=== PATIENT | female | born 1985 | race Caucasian/White ===

== ENCOUNTER → 2018-08-16 15:30 | Outpatient (CLI) | payer OTHER, SELFPAY ==
[2018-08-20 11:58] LABS: HPV Reflexed? NOT INDICATED
== END ==
PROVIDERS: Referring Provider Obstetrics & Gynecology; Visit Provider Obstetrics & Gynecology
DX: Z12.4 Encounter for screening for malignant neoplasm of cervix (principal)
CPT/HCPCS: 87624; 88175; G0145

== ENCOUNTER → 2019-02-14 10:59 | Outpatient (CLI) | payer OTHER, SELFPAY ==
[2016-07-08 20:15] VITALS: BMI 33.0
[2019-02-15 14:32] LABS: Chlamydia Trachomatis by PCR Negative (Negative); Neisserai gonorrhoeae by PCR Negative (Negative); Probe Check PASS; Sample Adequacy Control PASS; Specimen Processing Control PASS
== END ==
PROVIDERS: Referring Provider Obstetrics & Gynecology; Visit Provider Obstetrics & Gynecology
DX: Z11.3 Encounter for screening for infections with a predominantly sexual mode of transmission (principal)
CPT/HCPCS: 87491; 87591

== ENCOUNTER 2020-12-16 07:46 | Day surgery (SDC) | payer OTHER, SELFPAY ==
[2020-12-10 10:22] VITALS: BMI 32.4
[2020-12-16] VITALS (7 sets, daily range): BP systolic 98–115; BP diastolic 47–69; PULSE 62–78; RESP 16; TEMP 36.6–37.3; O2SAT 93–100; BMI 31.7
--- NOTE | 2020-12-16 05:51 | HP_ITS ---
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: No Is patient in pain?: No Allergies venom-honey bee [bee venom (honey bee)] Allergy (Verified 12/10/20 10:23) Swelling Medications Ibuprofen 600 mg PO 4X/DAY PRN #30 tab 07/08/16 [Rx Confirmed 12/10/20] B-complex with vitamin C 1 tab PO DAILY 12/10/20 [History Confirmed 12/10/20] hydrocortisone 1 ea .ROUTE BID PRN #30 g 12/10/20 [Rx Confirmed 12/10/20] hydrocortisone acetate 25 mg rectal suppository 25 mg RC BID PRN ea 12/10/20 [History Confirmed 12/10/20] lactobacillus combination no.8 3 billion cell capsule 3,000 mmu cells PO DAILY 12/10/20 [History Confirmed 12/10/20] thyroid 60 mg tablet mg PO 12/10/20 [History] Is last menstrual period known: No Post menopausal: No Patient : No PFSH Medical History (Updated 12/10/20 @ 10:[address] Anuja Schwartz MD) Blood per rectum (Acute) Dysfunction of eustachian tube (Acute) External hemorrhoid (Acute) Rectal pressure (Acute) Vertigo (Acute) History of palpitations in adulthood (Resolved) Surgical History (Updated 12/10/20 @ 10:22 by Manda Nicole) History of wisdom tooth extraction (Acute) Family History (Updated 12/10/20 @ 10:22 by Manda Nicole) Father Colon cancer Social History (Updated 12/10/20 @ 10:[address] Anuja Schwartz MD) Smoking Status: Never smoker HPI HPI HPI: FREDERICK BUENO, is a 35 F who presents to the office today for HPI HPI Surgical H&P: Yes HPI: FREDERICK BUENO, is a 35 F who presents to the office today for hemorrhoids/red blood per rectum. Patient states she has had issues with hemorrhoids for about 3 years. Patient did get Anusol suppositories per PCP states that may have helped but she will have 1 to 2 weeks of having issues 2 weeks having no issues. Patient's father was diagnosed with colon cancer at age 48 did have an APR. Patient states that she has bowel once usually daily some bright red blood but that pretty regularly. Currently states her hemorrhoids only a little irritated blood diarrhea depending on type of food she eats specially if she eats. Patient states that typically her stools are harder. ROS General General: Yes fatigue; no weight change, appetite, colon cancer, breast cancer or weakness HEENT HEENT: No difficulty swallowing, eye injury, eye surgery, swollen glands or hoarseness Endo Endocrine: No thyroid disease, diabetes mellitus, thyroid cancer, Hair loss, heat intolerance or cold intolerance Musc Musculoskeletal: No back problems, arthritis, rheumatoid arthritis, gout or joint pain Cardio Cardiovascular: No murmur, pacemaker, heart disease, atrial fibrillation, high blood pressure, heart attack, heart stent, palpitations, shortness of breat with exertion or chest pain Psych Psychiatric: No depression, anxiety or hearing voices Resp Respiratory: No shortness of breath, No sleep apnea, No cough, No COPD, No asthma, No emphysema, No wheezing Gastro Gastrointestinal: No abdominal pain, No nausea or vomiting, No diarrhea, No constipation, Yes blood in stool, No acid reflux, Yes hemorrhoids, No ulcers, No gallbladder problem, No black,tarry stools Wilfredo Hematologic: No blood thinners, No blood disorders, No bleeding, No anemia, No blood clots Neuro Neurologic: No weakness Exam Const General: cooperative, comfortable, no acute distress Resp Effort & Inspection: normal respiratory effort Cardio Rate: regular rate Heart Sounds: no murmurs GI Inspection: non-distended Palpation: soft, no guarding, nontender Other: Digital rectal exam: 11:00 small external hemorrhoid, 6:00 small amount of residual tissue noninflamed (6:00 being anterior). No masses tactile exam or blood, there is small internal hemorrhoid component at the 11:00 area. Assessment & Plan Problems 1. BRBPR (bright red blood per rectum) K62.5 2. Hemorrhoids K64.9 3. FH: colon cancer in relative <50 years old Z80.0 Dad was 48-year-old diagnosed- did have an APR Plan We will give the patient hydrocortisone/lidocaine ointment that can be placed on this external area. However her exam did not seem to be consistent with amount of blood she states that she would have that sometimes. This may be due to the hemorrhoids not being inflamed at this time possibly another source did recommend colonoscopy. Patient was agreeable with plan. I have discussed the above with the patient. I have offered the patient colonoscopy for evaluation. I have explained the risks/benefits of the procedure and described the procedure. I have discussed the risks with the patient, including but not limited to: infection, bleeding, perforation of the GI tract requiring emergency surgery, inability to complete the procedure, injury to any internal organs, complications of anesthesia, etc. - the patient understands and agrees to proceed. I have answered all the patient's questions to the patient's satisfaction and the patient has no further questions. The patient has been given instructions for the colon cleansing preparation. 1 day clears, MiraLAX Dulcolax split prep. We will plan for December 16 per patient request Anuja Schwartz M.D. Pager: [phone] [facility] [address] [place] [address], [address] [place] [address] Office: [phone] Orders Orders: Colonoscopy Today Medications New: hydrocortisone (Hydrocortisone 2.5%/lidocaine 5% ointment (compound)) 1 ea twice a day PRN; 30 grams 1RF pain Plan Detail Follow Up Schedule colonoscopy. Coding Level of Care Code Off vis,new,level 3 Diagnoses BRBPR (bright red blood per rectum) K62.5 Hemorrhoids K64.9 FH: colon cancer in relative <50 years old Z80.0 COVID (Procedure Consent) Procedure Criteria Procedure Criteria: Yes Elective The surgeon/proceduralist and patient have discussed in detail the risk of exposure to and/or potential harm posed by the COVID-19 virus with having a surgery/procedure at this time versus the risk of? delaying the surgery/procedure. It is not possible to know either the risk of delaying the surgery or procedure or chance of getting an infection with perfect accuracy, but a joint decision was made between the patient and the surgeon/proceduralist ?to proceed at this time with the scheduled surgery/procedure as indicated on the consent form. I have re-examined the patient. There are no clinical changes since date of exam.
[2020-12-16 08:23] LABS: Internal QC Validated? YES +Cl - CLEAR BKGD; Pregnancy, Urine Negative Negative
[2020-12-16] MEDS: Lactated Ringers 1,000 ML 100 ML IV (08:31)
--- NOTE | 2020-12-16 09:00 | COLBX_PTH ---
PATIENT: FREDERICK BUENO LOC: EN U#:[id number] AGE/SX: 35/F ROOM: RE12/16/[address]: Dr. Anuja Schwartz MD : 1985 BED: DIS: 12/16/2020 SPEC #: [id number] RECD: 12/16/20 10:19 STATUS: VERONIKA BAM #: [id number] GLEN: 12/16/20 09:[address]: Anuja Schwartz DEPT: SURGICAL PATHOLOGY RECD BY: Trang Billy ENTERED: 12/16/20 11:47 SP TYPE: COLON BX MAITE DR: Noemy Castro PA-C Tissues: A - Descending colon B - Descending colon Procedures: Surgery Specimen Level IV HEADER OPERATION: Colonoscopy (RAJ) PRE-OP DIAGNOSIS: Bright red blood per rectum, hemorrhoids TISSUE SUBMITTED: A - Descending colon polyp at 65 cm using snare, B - Descending colon polyp at 65 cm using forceps MICROSCOPIC DIAGNOSIS A. Descending colon polyp at 65 cm, biopsy: Fragments of tubular adenoma. B. Descending colon polyp at 65 cm, forceps biopsy: Tubular adenoma. AM:marcus 12/17/2020 MICROSCOPIC DESCRIPTION Slides are reviewed. GROSS DESCRIPTION A - Received in fixative is one container labeled with the patient's name and designated descending colon polyp. The specimen consists of multiple irregular fragments of [place] soft tissue that in aggregate measure 0.6 x 0.6 x 0.1 cm. The specimen is totally submitted in one cassette. B - Received in fixative is one container labeled with the patient's name and designated descending colon polyp. The specimen consists of one irregular fragment of light [place] soft tissue that measures 0.3 x 0.2 x 0.1 cm. The specimen is totally submitted in one cassette. / AM:marcus 12/16/20 TC:5 CPT: 47433 x2
--- NOTE | 2020-12-16 14:43 | OP.CCLET_ITS ---
12/16/2020 Noemy Castro Re : Colonoscopy procedure for Grecia Castro This procedure was performed on Wednesday, December 16, 2020. My impressions and recommendations are as follows: Impressions : - Hemorrhoids found on perianal exam. - Non-bleeding external and internal hemorrhoids. - One 5 mm polyp in the sigmoid colon at 65 cm, removed with a hot snare. Resected and retrieved. - One less than 5 mm polyp in the sigmoid colon at 65 cm, removed with a cold biopsy forceps. Resected and retrieved. - The examination was otherwise normal. Recommendations : - Discharge patient to home. - Resume previous diet. - Continue present medications. - Await pathology results. - Repeat colonoscopy in 3 years for surveillance based on pathology results. My findings are described in the full procedure note, which is enclosed. If I can be of further assistance, please feel free to contact me at Doctor phone number(s): , Work: . Sincerely, MD Anuja Barros MD 12/16/2020 9:39:19 AM This report has been signed electronically.
--- NOTE | 2020-12-16 14:43 | OP.COLON_ITS ---
Patient Name: Grecia Larose Procedure Date: 12/16/2020 8:54 AM Date of : 1985 Age: 35 Procedure: Colonoscopy Indications: Rectal bleeding, Family history of colon cancer in a first-degree relative Providers: Anuja Schwartz MD Referring MD: Noemy Castro Medicines: Monitored Anesthesia Care Patient Profile: This is a 35 year old female. Last Colonoscopy: none. The patient's first colonoscopy is today. Complications: No immediate complications. Procedure: Pre-Anesthesia Assessment: - Prior to the procedure, a History and Physical was performed, and patient medications and allergies were reviewed. The patient's tolerance of previous anesthesia was also reviewed. The risks and benefits of the procedure and the sedation options and risks were discussed with the patient. All questions were answered, and informed consent was obtained. Prior Anticoagulants: The patient has taken no previous anticoagulant or antiplatelet agents. ASA Grade Assessment: Per anesthesia. After reviewing the risks and benefits, the patient was deemed in satisfactory condition to undergo the procedure. After I obtained informed consent, the scope was passed under direct vision. Throughout the procedure, the patient's blood pressure, pulse, and oxygen saturations were monitored continuously. The pediatric colonoscope was introduced through the anus and advanced to the cecum, identified by appendiceal orifice and ileocecal valve. The colonoscopy was performed without difficulty. The patient tolerated the procedure well. The quality of the bowel preparation was good. Scope In: 9:04:48 AM Scope Withdrawal Time 0 hours 19 minutes 23 seconds Scope Out: 9:27:50 AM Total Procedure Duration Time 0 hours 23 minutes 2 seconds Findings: Hemorrhoids were found on perianal exam. Non-bleeding external and internal hemorrhoids were found. The hemorrhoids were Grade I (internal hemorrhoids that do not prolapse). A 5 mm polyp was found in the sigmoid colon at 65 cm-slight bleeding. The polyp was semi-pedunculated. The polyp was removed with a hot snare. Resection and retrieval were complete. A less than 5 mm polyp was found in the sigmoid colon at 65 cm. The polyp was sessile. The polyp was removed with a cold biopsy forceps. Resection and retrieval were complete. The exam was otherwise without abnormality. Impression: - Hemorrhoids found on perianal exam. - Non-bleeding external and internal hemorrhoids. - One 5 mm polyp in the sigmoid colon at 65 cm, removed with a hot snare. Resected and retrieved. - One less than 5 mm polyp in the sigmoid colon at 65 cm, removed with a cold biopsy forceps. Resected and retrieved. - The examination was otherwise normal. Recommendation: - Discharge patient to home. - Resume previous diet. - Continue present medications. - Await pathology results. - Repeat colonoscopy in 3 years for surveillance based on pathology results. Procedure Code(s): --- Professional --- 54926, Colonoscopy, flexible; with removal of tumor(s), polyp(s), or other lesion(s) by snare technique 49626, 59, Colonoscopy, flexible; with biopsy, single or multiple Diagnosis Code(s): --- Professional --- Z80.0, Family history of malignant neoplasm of digestive organs K62.5, Hemorrhage of anus and rectum D12.5, Benign neoplasm of sigmoid colon K64.0, First degree hemorrhoids CPT copyright 2017 [employer]. All rights reserved. The codes documented in this report are preliminary and upon station repairer review may be revised to meet current compliance requirements. MD Anuja Barros MD 12/16/2020 9:39:19 AM This report has been signed electronically. Number of Addenda: 0 Note Initiated On: 12/16/2020 8:54 AM
== END 2020-12-16 10:36 | disposition home or self-care (01) ==
LOC: EN 07:47 → AC 07:47
PROVIDERS: Anesthesiology; PCP Family Medicine; Referring Provider Family Medicine; Visit Provider Surgery
PROC: 0DJD8ZZ Inspection of Lower Intestinal Tract, Via Natural or Artificial Opening Endoscopic (ICD-10-PCS; CPT 45378; principal; 2020-12-16 08:55)
DX: K64.0 First degree hemorrhoids (principal); K62.5 Hemorrhage of anus and rectum; D12.5 Benign neoplasm of sigmoid colon; K64.4 Residual hemorrhoidal skin tags; Z87.19 Personal history of other diseases of the digestive system; Z20.828 Contact with and (suspected) exposure to other viral communicable diseases; Z80.0 Family history of malignant neoplasm of digestive organs; Z79.899 Other long term (current) drug therapy
CPT/HCPCS: 45380; 45385; 81025; 87426; 88305; C9803; J7120; J2405

== ENCOUNTER 2022-07-24 11:09 | Emergency (ER) | payer OTHER, SELFPAY ==
[2022-07-24 11:09] VITALS: BP 146/88; PULSE 73; RESP 16; TEMP 36.6; O2SAT 100; BMI 30.9
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
[2022-07-24] MEDS: Triamcinolone Acetonide 40 MG/ML Vial IM (12:21)
[2022-07-24 12:24] VITALS: PULSE 74; RESP 17; TEMP 37.7
== END 2022-07-24 12:39 | disposition home or self-care (01) ==
PROVIDERS: Emergency Provider Student in an Organized Health Care Education/Training Program; PCP Family Medicine; Visit Provider Student in an Organized Health Care Education/Training Program
DX: L23.7 Allergic contact dermatitis due to plants, except food (principal)
CPT/HCPCS: 96372; 99282

== ENCOUNTER 2024-04-26 06:22 | Day surgery (SDC) | payer OTHER, SELFPAY ==
[2024-04-26] VITALS (9 sets, daily range): BP systolic 93–129; BP diastolic 60–88; PULSE 60–72; RESP 16; TEMP 36.4–37.2; O2SAT 98–100; BMI 29.5
[2024-04-26 06:39] LABS: Internal QC Validated? YES +Cl - CLEAR BKGD; Pregnancy, Urine Negative Negative; Record Kit Lot#,Urine Preg 772476
[2024-04-26] MEDS: Lactated Ringers 1,000 ML 15 ML IV (06:46)
--- NOTE | 2024-04-26 07:03 | PRE.ANES_ITS ---
ASA Classification* ASA Classification ASA Classification: 2 Assessment & Plan Anesthesia* Anesthesia Assessment Anesthesia Assessment: Discussed sedation and/or anesthesia options, risks, benefits, and alternatives with patient/parents/legal guardian/POA. Questions invited. The patient/parents/legal guardian/POA seems to understand and agrees to proceed with anesthesia plan. Reviewed the physical assessment, medical history, allergy history and patient home medications list prior to surgery/procedure/anesthetic and documented any changes. Performed airway and anesthesia risk assessments. Anesthesia Type Anesthesia Type: MAC Anesthesia Focused Assessment* Temperature: 98.0 F Pulse Rate: 67 Blood Pressure: 129/88 Respiratory Rate: 16 Pulse Ox: 100 Airway Assessment Mouth opens: >3 cm Mallampati Score: II Focused Labs Anesthesia Preop lab: CBC WBC 13.2 K/mm3 (4.4-11.0) H 07/09/16 04:47 RBC 3.68 M/mm3 (4.2-5.4) L 07/09/16 04:47 Hgb 10.9 g/dl (12.0-15.0) L 07/09/16 04:47 Hct 32.1 % (37-47) L 07/09/16 04:47 Plt Count 265 K/mm3 (150-450) 07/09/16 04:47 CHEMISTRY TSH 0.08 uIU/mL (0.358-3.74) L 12/17/15 16:45 COAG Urine Test Negative Negative 04/26/24 06:30 Pre-Assessment Diagnosis/Proposed Procedure Planned Operative Procedure(s): CSCOPE Anesthesia History 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 When Was Last Pacemaker Check QUESTION #4 FULL TEXT: You/Your Family Experience fever (hyperthermia) with Anesthesia Last Oral Intake Last Oral intake: Last Oral Intake NPO since 00:00 04/26/24 06:42 Meds taken in AM with sips of No 04/26/24 06:42 water? 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 Female Yes 04/21/24 09:59 HX of Motion Sickness Yes 04/21/24 09:59 HX of N/V After Surgery No 04/21/24 09:59 Non-Smoker Yes 04/21/24 09:59 Duration of Surgery greater No 04/21/24 09:59 than 60 minutes Number of Risk Factors 3 04/21/24 09:59 PONV Score Moderate Risk 04/21/24 09:59 Height & Weight Height & Weight: Anesthesia: Height & Weight Height 5 ft 4 in 04/26/24 06:42 Weight: 78 kg 04/26/24 06:42 Body Mass Index (BMI) 29.5 04/26/24 06:42 Respiratory Assessment Respiratory Assessment - 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 Has anyone observed you stop No 04/21/24 09:59 breathing during sleep? STOP Results Negative 04/21/24 09:59 QUESTION #5 FULL TEXT : Do you snore loudly (louder than talking or can be heard through closed doors)? 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 Specify any problems Hx of Preganancy in last 3 No 04/21/24 09:59 Months Nurse Filling Out Transfusion DSCHRIBER 04/21/24 09:59 & Questions: Date: 04/21/24 04/21/24 09:59 Time: 10:00 04/21/24 09:59 Patient unable to answer at this time (ie. 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 mill operator Hx Now No 04/21/24 09:59 Gestational Age (in weeks): EDC: Hx Hx Para Hx Section SAB No 04/21/24 09:59 Active Medications Active Medications: Current Medications Generic Name Dose Route Start Last Admin Trade Name Freq PRN Reason Stop Dose Admin Lactated Ringer's 1,000 mls @ 15 mls/hr 04/26/24 06:45 04/26/24 06:46 IV 15 mls/hr .Q48H BERNADETTE Administration PFSH Medical History Wears glasses Wears contact lenses Anxiety Arthritis Injury of head and neck Heartburn Non-smoker Shortness of breath on exertion Leg cramps History of edema History of Holter monitoring History of irregular heartbeat Hx of colonic polyp Blood per rectum Rectal pressure Dysfunction of eustachian tube Vertigo External hemorrhoid Home Medications ?Medication ?Instructions ?Recorded ?Last Taken ?Type CORTASTOP 2 cap PO DAILY 04/21/24 04/23/24 History Allergy/AdvReac Type Severity Reaction Status Date / Time ground veronica Allergy Mild Rash Verified 04/21/24 09:58 venom-honey bee (bee venom Allergy Swelling Verified 04/21/24 09:58 (honey bee)) Family History Father Colon cancer Surgical History Hx of colonoscopy History of wisdom tooth extraction Social History Smoking Status: Never smoker alcohol intake: current alcohol intake frequency: a few times a month Alcohol type: wine Review of Systems (Anesthesia) ROS Narrative System reviewed and no additional complaints, except as documented.
--- NOTE | 2024-04-26 07:10 | HP.PCM_ITS ---
History and Physical Date of Admission: 04/26/24 Date of Service: 04/04/24 MR#: [id number] Acct: [id number] Name: FREDERICK BUENO Rep #: [id number] : 1985 Provider: Dr. Anuja Schwartz MD Age/Sex: 39/F Location: [facility] Status: Signed Intake Vital Signs 08/26/2210:51 04/04/2414:16 Height 5 ft 4 in 5 ft 4 in Weight: 178 lb BMI 30.5 BP 120/78 Blood Pressure Location Rt brachial Position Sitting Respiration 18 Pulse 68 Pulse Source Monitor Temp 97.3 F L Temp Source Temporal Pulse Oximetry (%) 99 Oxygen Delivery Method room air Intake Visit Reasons: COLONOSCOPY RECALL Chief Complaint: colonoscopy recall Is patient in pain?: No Allergies ground veronica Allergy (Mild, Verified 04/04/24 14:17) Rashvenom-honey bee (bee venom (honey bee)) Allergy (Verified 04/04/24 14:17) Swelling Have you fallen in the past year?: No [facility] Medical History (Updated 04/04/24 @ 14:[address] Anuja Schwartz MD) Hx of colonic polyp Blood per rectum Rectal pressure History of palpitations in adulthood Dysfunction of eustachian tube Vertigo External hemorrhoid Surgical History History of wisdom tooth extraction Family History Father Colon cancer Social History Smoking Status: Never smoker alcohol intake: current alcohol intake frequency: a few times a month Alcohol type: wine HPI HPI HPI: 39-year-old female presents for screening colonoscopy due to history of colon polyps. Patient last colonoscopy was in December 2020 and she had 2 tubular adenomas at that time. Patient's daughter was also diagnosed with colon cancer late 40s/early 50s. Patient states she still has some bright red blood per rectum she has a known history of hemorrhoids but typically she is doing better and not having as many hard stools as previous. Patient drinks plenty of water. Patient states occasionally she can have loose stools right after eating but this does not occur very often. Patient does have bowel movements daily. ROS General General: No weight change, appetite, fatigue, colon cancer, breast cancer or weakness HEENT HEENT: No difficulty swallowing, eye injury, eye surgery, swollen glands or hoarseness Endo Endocrine: No thyroid disease, diabetes mellitus, thyroid cancer, Hair loss, heat intolerance or cold intolerance Skin Skin: No rash or changing moles Musc Musculoskeletal: No back problems, arthritis, rheumatoid arthritis, gout or joint pain Cardio Cardiovascular: No murmur, pacemaker, heart disease, atrial fibrillation, high blood pressure, heart attack, heart stent, palpitations, shortness of breat with exertion or chest pain Psych Psychiatric: Yes anxiety; No depression or hearing voices Resp Respiratory: No shortness of breath, No sleep apnea, No cough, No COPD, No asthma, No emphysema and No wheezing Gastro Gastrointestinal: No abdominal pain, No nausea or vomiting, Yes diarrhea, Yes constipation, Yes blood in stool, No acid reflux, Yes hemorrhoids, No ulcers, No gallbladder problem and No black,tarry stools Wilfredo Hematologic: No blood thinners, No blood disorders, No bleeding, No anemia and No blood clots Neuro Neurologic: No numbness, No tingling and No weakness Exam Const General: cooperative, healthy appearing, comfortable and no acute distress HENMT Head: normocephalic and atraumatic Neck Neck: supple Resp Effort & Inspection: normal respiratory effort Cardio Rate: regular rate GI Inspection: non-distended Palpation: soft and nontender Skin General: no rashes or lesions noted Neuro General: CN's II-XI intact bilaterally Extrem General: normal to inspection Psych Mental Status: mental status grossly normal Attitude: cooperative Assessment and Plan Assessment and Plan (1) FH: colon cancer in relative <50 years old: Status: Chronic Comment: Dad was 48-year-old diagnosed- did have an APR (2) Hx of colonic polyp: Status: Acute Plan 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 Discussed patient that if she does get a time prior to May it may be an the late morning/early afternoon which patient was okay with. Patient is okay with surgery scheduler calling her next week to figure out date I have discussed the above with the patient. I have offered the patient colonoscopy for evaluation. I have explained the risks/benefits of the procedure and described the procedure. I have discussed the risks with the patient, including but not limited to: infection, bleeding, perforation of the GI tract requiring emergency surgery, inability to complete the procedure, injury to any internal organs, complications of anesthesia, etc. - the patient understands and agrees to proceed. I have answered all the patient's questions to the patient's satisfaction and the patient has no further questions. The patient has been given instructions for the colon cleansing preparation. 1 day of clears MiraLAX Dulcolax prep Anuja Schwartz M.D. Pager: [phone] [facility] [address] [place] [address], [address] [place] [address] Office: [phone] Coding Level of Care Code Off vis,est,level 3 Diagnoses FH: colon cancer in relative <50 years old Z80.0 Hx of colonic polyp Z86.010 Clinical Quality Measures Falls Risk Screening/Assistive Devices Have you fallen in the past year?: No 04/04/24 1447 <Electronically signed by Anuja Schwartz MD> Date Anuja Schwartz MD
--- NOTE | 2024-04-26 07:47 | OP.CCLET_ITS ---
04/26/2024 Noemy Castro Re : Colonoscopy procedure for Grecia Castro This procedure was performed on Friday, April 26, 2024. My impressions and recommendations are as follows: Impressions : - The entire examined colon is normal on direct and retroflexion views. - No specimens collected. Recommendations : - Discharge patient to home. - Resume previous diet. - Continue present medications. - Repeat colonoscopy in 5 years for screening purposes. My findings are described in the full procedure note, which is enclosed. If I can be of further assistance, please feel free to contact me at Doctor phone number(s): , Work: . Sincerely, MD Anuja Barros MD 04/26/2024 7:46:54 AM This report has been signed electronically.
--- NOTE | 2024-04-26 07:47 | OP.COLON_ITS ---
Patient Name: Grecia Larose Procedure Date: 04/26/2024 6:45 AM Date of : 1985 Age: 39 Procedure: Colonoscopy Indications: High risk colon cancer surveillance: Personal history of colonic polyps, Family history of colon cancer in a first-degree relative before age 60 years Providers: Anuja Schwartz MD Medicines: Monitored Anesthesia Care Patient Profile: This is a 39 year old female. Last Colonoscopy: 2020. Complications: No immediate complications. Procedure: Pre-Anesthesia Assessment: - Prior to the procedure, a History and Physical was performed, and patient medications and allergies were reviewed. The patient's tolerance of previous anesthesia was also reviewed. The risks and benefits of the procedure and the sedation options and risks were discussed with the patient. All questions were answered, and informed consent was obtained. Prior Anticoagulants: The patient has taken no anticoagulant or antiplatelet agents. ASA Grade Assessment: Per anesthesia. After reviewing the risks and benefits, the patient was deemed in satisfactory condition to undergo the procedure. After I obtained informed consent, the scope was passed under direct vision. Throughout the procedure, the patient's blood pressure, pulse, and oxygen saturations were monitored continuously. The Colonoscope was introduced through the anus and advanced to the cecum, identified by the appendiceal orifice, ileocecal valve and palpation. The colonoscopy was performed without difficulty. The patient tolerated the procedure well. The quality of the bowel preparation was good. Scope In: 7:28:14 AM Scope Withdrawal Time 0 hours 7 minutes 25 seconds Scope Out: 7:39:06 AM Total Procedure Duration Time 0 hours 10 minutes 52 seconds Findings: The perianal and digital rectal examinations were normal. The entire examined colon appeared normal on direct and retroflexion views. Impression: - The entire examined colon is normal on direct and retroflexion views. - No specimens collected. Recommendation: - Discharge patient to home. - Resume previous diet. - Continue present medications. - Repeat colonoscopy in 5 years for screening purposes. Procedure Code(s): --- Professional --- G0105, PT, Colorectal cancer screening; colonoscopy on individual at high risk Diagnosis Code(s): --- Professional --- Z86.010, Personal history of colonic polyps Z80.0, Family history of malignant neoplasm of digestive organs CPT copyright 2021 [employer]. All rights reserved. The codes documented in this report are preliminary and upon shadowgraph scale operator review may be revised to meet current compliance requirements. MD Anuja Barros MD 04/26/2024 7:46:54 AM This report has been signed electronically. Number of Addenda: 0 Note Initiated On: 04/26/2024 6:45 AM
--- NOTE | 2024-04-26 07:50 | PCM.POST.ANE ---
Anesthesia: Postop Eval I Current Vital Signs Temperature: 97.6 F Pulse Rate: 72 Blood Pressure: 103/60 Respiratory Rate: 16 Pulse Ox: 98 Oxygen Delivery Method: Room Air Assessment Airway patent: Yes Spontaneous unlabored respirations: Yes Mental status: Asleep nausea: No Vomiting: No Anesthesia Complication: No Fluid Hydration Crystalloid volume administer (ml): 600 Total IV fluid infused: 600 Progress Note Anesthesia document: Postop Eval 1 completed: Yes
--- NOTE | 2024-04-26 08:03 | PCM.POSTANE2 ---
Anesthesia Postop Eval I Sum Postop Eval Completion status Anesthesia document: Postop Eval 1 completed: Yes Anesthesia Postop Eval I Summary Anesthesia Postop Eval I Summary: Anesthesia Postop Eval I: Assessment Summary Airway patent Yes 04/26/24 07:51 [email or web address] Spontaneous unlabored Yes 04/26/24 07:51 [email or web address] respirations Mental status Asleep 04/26/24 07:51 [email or web address] nausea No 04/26/24 07:51 [email or web address] Vomiting No 04/26/24 07:51 [email or web address] Anesthesia Postop Eval I: Fluid Summary Crystalloid volume administer 600 04/26/24 07:51 [email or web address] (ml) Colloids volume administered ( ml) Blood Product volume administered (ml) Total IV fluid infused 600 04/26/24 07:51 [email or web address] Anesthesia Postop Eval I: Summary Notes Anesthesia Complication No 04/26/24 07:51 [email or web address] Anesthesia Complication Comment: Post-operative progress note Anesthesia: Postop Eval II Evaluation Mental status: Awake and Calm Pain Level: 0 nausea: No Vomiting: No Complications Anesthesia Complication: No
== END 2024-04-26 08:38 | disposition home or self-care (01) ==
LOC: EN 06:23 → AC 06:24
PROVIDERS: Anesthesiology; PCP Family Medicine; Referring Provider Family Medicine; Visit Provider Surgery
PROC: 0DJD8ZZ Inspection of Lower Intestinal Tract, Via Natural or Artificial Opening Endoscopic (ICD-10-PCS; CPT 45378; principal; 2024-04-26 07:25)
DX: Z12.11 Encounter for screening for malignant neoplasm of colon (principal); Z86.010 Personal history of colon polyps; Z80.0 Family history of malignant neoplasm of digestive organs
CPT/HCPCS: 45378; 81025; J7120; J2405